=== PATIENT | female | born 1965 | race American Indian/Alaskan Native ===

== ENCOUNTER 2019-01-27 14:55 | Emergency (ER) | payer SELFPAY ==
[2019-01-27 15:24] VITALS: BP 170/101
--- NOTE | 2019-01-27 15:25 | Event Note ---
ED Screening Note Date of service: 01/27/19 Time: 15:24 ED Screening Note: Patient here report lightheaded with elevated blood pressure. Denies cp or sob. Reports that she just [facility] and did not take HCTZ and worried . Denies CHRISITNE A&O x3. GCS 15 This initial assessment/diagnostic orders/clinical plan/treatment(s) is/are subject to change based on patients health status, clinical progression and re- assessment by fellow clinical providers in the ED. Further treatment and workup at subsequent clinical providers discretion. Patient/guardian urged not to elope from the ED as their condition may be serious if not clinically assessed and managed. Initial orders include: CBC, CMP, UA
--- NOTE | 2019-01-27 15:49 | Emergency Department Report ---
Chief Complaint: Dizziness Stated Complaint: RX REFILL Time Seen by Provider: 01/27/19 15:22 - HPI History of Present Illness: Patient is a 53-year-old [place] female who is presenting for medication refill. Patient has a history of hypertension. Patient states she was seen here several months ago and was given prescription for her blood pressure medications however she afterwards went to [facility] and her prescription was lost. Patient also states that she has some pain and swelling to her posterior right molars. Patient was also given a prescription for doxycycline the last this as well when she went to [facility]. Medications out she was hoping to get a reprint of her prescriptions. Patient's blood pressure is elevated which she states she has no chest pain shortness of breath cough cold congestion focal neurological deficits diaphoresis nausea vomiting or diarrhea. - ROS Review of Systems: Follow systems are reviewed and are negative - Exam Vital Signs: Vital Signs 01/27/19 15:22 Temperature 98.1 F Pulse Rate 70 Respiratory 16 Rate Blood Pressure 170/101 O2 Sat by Pulse 97 Oximetry Physical Exam: Patient is alert oriented 3 in no acute distress lungs are clear to auscultation abdomen soft and nontender heart sounds within normal limits. Neurological exam shows the patient has full range of motion in all her extremities with good strength and she speak in clear sentences. The ENT exam shows the patient has poor dentition with some irritation and erythema of the gums just to the posterior bilateral molars. MSE screening note: Focused history and physical exam performed. Due to findings the following was ordered: ED Medical Decision Making - Medical Decision Making Patient is not medical emergency at this time. Patient will have his recurrence of her previous prescriptions. Patient's last visit was under a different account number and her prescription have been reviewed and written by me. These are the same prescriptions that were given to the patient in the past that were never filled. ED Disposition for MSE Clinical Impression: Medication refill, Hypertensive urgency Disposition: Z MED SCREENING EXAM-LEFT Is pt being admited?: No Does the pt Need Aspirin: No Condition: Stable Prescriptions: hydroCHLOROthiazide [HCTZ] 25 mg PO QDAY #30 tablet DOXYCYCLINE Hyclate [Vibramycin CAP] 100 mg PO Q12HR #14 capsule Time of Disposition: 15:50
== END 2019-01-27 16:15 | disposition left against medical advice (07) ==
LOC: ED 14:55
DX: I16.0 Hypertensive urgency (principal); I10 Essential (primary) hypertension; Z76.0 Encounter for issue of repeat prescription
CPT/HCPCS: 99281